=== PATIENT | female | born 1965 | race African-American/Black ===

== ENCOUNTER 2020-10-07 00:23 | Emergency (ER) | payer OTHER, SELFPAY ==
[2020-10-07 00:37] VITALS: BP 179/81; PULSE 64; RESP 18; TEMP 37.1; O2SAT 98
[2020-10-07 01:18] VITALS: BP 149/74; PULSE 64; RESP 16; O2SAT 97
--- NOTE | 2020-10-07 04:02 | ED.SKABFB ---
HPI - Skin/Abscess/Foreign Bdy General Chief complaint: Skin/Abscess/Foreign Body Stated complaint: Rash on ABD Time Seen by Provider: 10/07/20 00:38 Source: patient Mode of arrival: Ambulatory Limitations: no limitations History of Present Illness HPI narrative: 55-year-old female daily smoker without significant medical problems presents with her brother and a chief complaint of a intensely itchy and sometimes painful rash across her abdomen which has been gradually worsening over the past few days. She states that started with a small patch under her left breast and has since spread. She has not taken any medications for and denies any history of the same. She has had no fever or chills and denies nausea or vomiting. She is visiting from [place]. She thinks it is getting worse in the hot weather when she is sweating Related Data Previous Rx's Medication Instructions Recorded ketoconazole 1 applic TOPICAL BID #30 g 10/07/20 Allergies Allergy/AdvReac Type Severity Reaction Status Date / Time No Known Drug Allergies Allergy Verified 10/07/20 00:36 Review of Systems Constitutional Constitutional: Denies chills, Denies fatigue, Denies fever(s), Denies frequent falls, Denies lethargy and Denies weakness Eyes Eyes: Denies change in vision, Denies eye discharge, Denies irritation and Denies loss of vision ENT Ears, Nose, Mouth, and Throat: Denies change in voice, Denies dizziness, Denies neck pain, Denies sore throat and Denies throat swelling Cardiovascular Cardiovascular: Denies chest pain, Denies irregular heart rhythm, Denies lightheadedness, Denies palpitations, Denies dyspnea, Denies dyspnea on exertion and Denies orthopnea Respiratory Respiratory: Denies cough, Denies dyspnea, Denies dyspnea on exertion and Denies wheezing Gastrointestinal Gastrointestinal: Denies abdominal pain, Denies change in bowel habits, Denies diarrhea, Denies nausea and Denies vomiting Musculoskeletal Musculoskeletal: Denies neck pain and Denies numbness Integumentary/Breasts Skin/Breast: Denies pruritus, Reports erythema, Denies rash, Reports skin pain, Reports skin swelling and Denies wounds Neurologic Neurologic: Denies behavioral changes, Denies confusion, Denies dizziness, Denies frequent falls, Denies loss of vision, Denies numbness and Denies weakness Psychiatric Psychiatric: Denies anxiety, Denies behavioral changes, Denies confusion, Denies depression, Denies homicidal ideation and Denies suicidal ideation Endocrine Endocrine: Denies fatigue, Denies flushing and Denies palpitations Hematologic/Lymphatic Hematologic/Lymphatic: Denies easy bruising Allergic/Immunologic Allergic/Immunologic: Denies urticaria, Denies throat swelling and Denies wheezing Patient History Social History Smoking Status: Current every day smoker Smoking Status: Current every day smoker tobacco type: cigarettes alcohol intake frequency: holidays/special occasions only Substance Use Type: does not use Exam Narrative Exam Narrative: GEN: AOx3 and in mild distress EYES: Pupils are equal, round, and reactive to light and accommodation. Extraoccular muscles are intact bilaterally. There is no subconjunctival hemorrhage or exudate. CHEST: Lungs are clear to auscultation bilaterally and free of wheezes, rales, or rhonchi. Heart rate is regular rhythm, there are no murmurs, clicks, rubs, or gallops. There is no chest wall tenderness. ABD: Abdomen is soft and nontender. There is no guarding or rebound. Bowel sounds are normal in all 4 quadrants. There is no mass or organomegaly. EXT: Full painless ROM of all extremities with no loss of sensation or strength. SKIN: The skin under each breast and where the breast rests on her abdomen is erythematous, beefy, pruritic Initial Vital Signs Initial Vital Signs: Vital Signs Temperature 98.7 F 10/07/20 00:37 Pulse Rate 64 10/07/20 00:37 Respiratory Rate 18 10/07/20 00:37 Blood Pressure 179/81 H 10/07/20 00:37 Pulse Oximetry 98 10/07/20 00:37 Course Orders Ordered: Discontinued Medications Ketoconazole (Ketoconazole 2% Cream 60 Gm) 1 applic TOP NOW ONE Stop: 10/07/20 00:47 Last Admin: 10/07/20 03:13 Dose: Not Given Documented by: [email or web address] Vital Signs Vital signs: Vital Signs - 8 hr 10/07/20 00:37 10/07/20 01:18 Temperature 98.7 F Pulse Rate 64 64 Respiratory Rate 18 16 Blood Pressure 179/81 H 149/74 H Pulse Oximetry 98 97 Discharge Plan Departure Patient Disposition: Home Clinical Impression: Cutaneous fungal infection Instructions: Yeast Infection-Skin Activity Restrictions/Additional Instructions: *You have been diagnosed with [[place] skin infection ] *What to do: *Please continue to take your regular medications as directed. [ ] New medication prescriptions sent to your pharmacy: [ ] [ ] New medication written as a paper prescription [ ] No new medications given *Please follow up with your primary care provider in 2-3 days, call for an appointment. Let them know you were seen in the Emergency Department and that we ask that you be seen in follow up. We will electronically transmit a record of today's note if your PCP is in our system *If you do not have a primary care provider please contact the [facility] Resource line at [phone]. They will ask some questions about your medical history and help get you set up with a doctor in the community. *Return to Emergency Department if you should have any new, worsening or concerning symptoms, such as [fever greater than 101 F, shaking chills, worsening pain, persistent vomiting or other bothersome symptoms] Prescriptions: New ketoconazole 2 % cream 1 applic topical BID Qty: 30 RF: 0
== END 2020-10-07 01:20 | disposition home or self-care (01) ==
PROVIDERS: Emergency Provider Emergency Medicine
DX: B37.2 Candidiasis of skin and nail (principal)
CPT/HCPCS: 99281; 99282

== ENCOUNTER 2023-01-14 15:48 | Emergency (ER) | payer OTHER, SELFPAY ==
[2023-01-14 16:03] VITALS: BP 202/107; PULSE 81; RESP 18; TEMP 36.9; O2SAT 99; BMI 30.4
[2023-01-14] MEDS: KETOROLAC 30 MG/ML VIAL IM (16:46)
[2023-01-14 16:47] VITALS: BP 220/98; PULSE 65; RESP 16; O2SAT 99
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
== END 2023-01-14 16:56 | disposition home or self-care (01) ==
PROVIDERS: Emergency Provider Physician Assistant
DX: M54.42 Lumbago with sciatica, left side (principal)
CPT/HCPCS: 96372; 99283; J1885

== ENCOUNTER 2024-03-04 17:46 | Emergency (ER) | payer MEDICAID, OTHER, SELFPAY ==
[2024-03-04 17:53] VITALS: BP 172/103; PULSE 116; RESP 94; TEMP 36.6; O2SAT 94; BMI 30.2
[2024-03-04 17:59] VITALS: BP 187/92
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
--- NOTE | 2024-03-04 18:07 | PC.NURSE ---
Patient open to speaking to medical social worker. Patient notified that CREDENTIALING COORDINATOR is gone for the day. Consult placed and face sheet left in CREDENTIALING COORDINATOR box. Patient agreeable to receiving a phone call from CREDENTIALING COORDINATOR tomorrow.
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
[2024-03-04] MEDS: ACETAMINOPHEN 325 MG TABLET 975 MG PO (18:23)
[2024-03-04] MEDS: ONDANSETRON 4 MG ODT SL (18:24)
[2024-03-04 19:21] VITALS: BP 147/74; PULSE 89; RESP 16; O2SAT 95
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
== END 2024-03-04 19:42 | disposition home or self-care (01) ==
PROVIDERS: Emergency Provider Physician Assistant
DX: S06.0X0A Concussion without loss of consciousness, initial encounter (principal); F41.9 Anxiety disorder, unspecified; Y04.2XXA Assault by strike against or bumped into by another person, initial encounter
CPT/HCPCS: 70450; 99283; 99284

== ENCOUNTER 2024-10-06 19:00 | Emergency (ER) | payer OTHER, MEDICAID, SELFPAY ==
[2024-10-06] VITALS (10 sets, daily range): BP systolic 132–206; BP diastolic 67–97; PULSE 80–97; RESP 24; TEMP 37.2; O2SAT 93–97; BMI 30.4
--- NOTE | 2024-10-06 19:20 | ED_ITS ---
HPI - Skin/Abscess/Foreign Bdy General Chief complaint: Skin/Abscess/Foreign Body Stated complaint: stuck in throat food Time Seen by Provider: 10/06/24 19:19 Source: patient Mode of arrival: Ambulatory Limitations: no limitations History of Present Illness HPI narrative: 59-year-old female was eating a piece of steak, had 1st piece of steak that she swallowed that felt like it was getting stuck, she had nausea and repeated episodes of nonbloody emesis, unable to control her secretions, tried to make herself vomit but had no results, on arrival here still had esophageal chest foreign body sensation, with frequent retching nonbloody emesis. She has had occasional problems swallowing things, no prior upper endoscopy evaluations. No esophageal surgeries or known esophageal pathology. Related Data Previous Rx's ?Medication ?Instructions ?Recorded ketoconazole 2 % topical cream 1 applic topical BID #3 0 grams 10/07/20 cyclobenzaprine 5 mg tablet 5 mg PO TID PRN muscle spa sm #20 01/14/23 tabs prednisone 50 mg tablet 50 mg PO DAILY back pain #5 tabs 01/14/23 hydroxyzine HCl 25 mg tablet 25 mg PO BEDTIME PRN anxi ety #5 03/04/24 tabs ondansetron 4 mg disintegrating 4 mg PO Q8H PRN nausea and 03/04/24 tablet vomiting #12 tabs Allergies Allergy/AdvReac Type Severity Reaction Status Date / Time hydrocodone AdvReac Hallucinati Verified 01/14/23 16:03 ng Patient History Social History Smoking Status: Current every day smoker Smoking Status: Current every day smoker tobacco type: cigarettes alcohol intake frequency: holidays/special occasions only Exam Narrative Exam Narrative: GENERAL: Well-developed patient, in moderate distress with frequent retching. HEAD: Atraumatic. Normocephalic. EYES: Pupils equal round and reactive. Extraocular motions intact. No scleral icterus. No injection or drainage. ENT: Nose without bleeding, purulent drainage. Throat without erythema, tonsillar hypertrophy or exudate. Airway patent. NECK: Trachea midline. Non tender CARDIOVASCULAR: Regular rate and rhythm without murmurs, gallops, or rubs. RESPIRATORY: Clear to auscultation. Breath sounds equal bilaterally. No wheezes, rales, or rhonchi. GASTROINTESTINAL: Abdomen soft, non-tender, nondistended. EXTREMITIES: No edema or joint tenderness. BACK: Nontender without deformity or crepitance. No flank tenderness. NEURO: AOx3. Motor functions grossly nonfocal. SKIN: No rash or erythema of visible areas Initial Vital Signs Initial Vital Signs: Vital Signs Temperature 98.9 F 10/06/24 19:03 Pulse Rate 97 H 10/06/24 19:03 Respiratory Rate 24 10/06/24 19:03 Blood Pressure 206/97 H 10/06/24 19:03 Pulse Oximetry 97 10/06/24 19:03 Oxygen Delivery Method Room Air 10/06/24 19:03 Course Orders Ordered: Discontinued Medications Al Hydrox/Mg Hydrox/Simethicone (Mag Hydrox/Alum/Simeth 30 Ml Udc) 30 ml PO NOW ONE Stop: 10/06/24 20:44 Last Admin: 10/06/24 20:57 Dose: 30 ml Documented By: KATHY Glucagon (Glucagon,Human Recombinant 1 Mg/Ml Vial) 1 mg IV NOW ONE Stop: 10/06/24 19:20 Last Admin: 10/06/24 20:14 Dose: 1 mg Documented By: LUCI Nitroglycerin (Nitroglycerin 0.4 Mg Sl Tab) 0.4 mg SL NOW ONE Stop: 10/06/24 19:20 Last Admin: 10/06/24 20:13 Dose: 0.4 mg Documented By: LUCI Pantoprazole Sodium (Pantoprazole 40 Mg Vial) 40 mg IV NOW ONE Stop: 10/06/24 20:44 Last Admin: 10/06/24 20:58 Dose: 40 mg Documented By: KATHY Vital Signs Vital signs: Vital Signs - 8 hr 10/06/24 22:10 10/06/24 22:11 10/06/24 22:11 Pulse Rate 89 83 Blood Pressure 136/88 Pulse Oximetry 96 95 Oxygen Delivery Method 10/06/24 22:38 10/06/24 22:38 Pulse Rate Blood Pressure 147/67 H Pulse Oximetry 93 Oxygen Delivery Method Room Air MDM - Skin/Abscess/Foreign Bdy MDM Narrative Medical decision making narrative: 59-year-old female with foreign body sensation after swallowing a piece of steak, unable to induce emesis and removed the foreign body, retching and nonbloody emesis here in the emergency department, went to the bathroom and had emesis of small particular steak matter but still persisting symptoms, unable to swallow her secretions. IV glucagon, sublingual nitroglycerin, sips of carbonated beverage. Symptoms seemed to be improving, possible passage of food bolus foreign body. Patient looks more comfortable, we will give IV Protonix, sips of Maalox. Further improved. Discharged home. Consider taking [id number] omeprazole for the next couple of weeks. Consider outpatient upper endoscopy, given histor y of similar symptoms less severe of retained esophageal foreign bodies, to evaluate for stricture or esophageal lesions. Advised to follow up with her primary care physician for referral to Gastroenterology as an outpatient basis. Discharge Plan Departure Patient Disposition: Home Clinical Impression: Impacted esophageal foreign body Instructions: DI for Foreign Body, Swallowed-Adult Activity Restrictions/Additional Instructions: Foreign body sensation with multiple episodes of vomiting after swallowing a piece of steak, likely impacted, initially not responsive to self-induced attempts at emesis, then had small fragments steak like material at emesis in the emergency department, IV glucagon and sublingual nitroglycerin given, seemed to be helpful, had passage of foreign body like sensation. Able to take sips of Maalox. IV Protonix antacid also given. No prior upper endoscopy. Likely have passed esophageal foreign body piece of steak. Consider upper endoscopy evaluation in follow up if you have had prior episodes of food getting stuck, as there could be esophageal mass or stricture that needs further evaluation. Lyles to your food including steak in meet another hard substances, to reduce the risk of foreign body food impaction in your esophagus in the future. Consider trial of omeprazole or other [id number]-ejysffe antacid for the next couple of weeks to encourage healing from tonight's episode. Return earlier to this/nearest emergency department for any change worsening symptoms or any concerns prior. Prescriptions: No Action prednisone 50 mg tablet 50 mg PO DAILY Qty: 5 0RF cyclobenzaprine 5 mg tablet 5 mg PO TID PRN (Reason: muscle spasm) Qty: 20 0RF ketoconazole 2 % cream 1 applic topical BID Qty: 30 0RF ondansetron 4 mg tablet,disintegrating 4 mg PO Q8H PRN (Reason: nausea and vomiting) Qty: 12 0RF hydroxyzine HCl 25 mg tablet 25 mg PO BEDTIME PRN (Reason: anxiety) Qty: 5 0RF Referrals: Miscellaneous,Doctor, MD [Primary Care Provider, Medical] Stand Alone Forms: Patient Portal/API
[2024-10-06] MEDS: NITROGLYCERIN 0.4 MG SL TAB SL (20:13)
[2024-10-06] MEDS: GLUCAGON,HUMAN RECOMBINANT 1 MG/ML VIAL IV (20:14)
[2024-10-06] MEDS: MAG HYDROX/ALUM/SIMETH 30 ML UDC PO (20:57)
[2024-10-06] MEDS: PANTOPRAZOLE 40 MG VIAL IV (20:58)
== END 2024-10-06 22:54 | disposition home or self-care (01) ==
PROVIDERS: Emergency Provider Emergency Medicine
DX: T17.228A Food in pharynx causing other injury, initial encounter (principal); W44.F3XA Food entering into or through a natural orifice, initial encounter
CPT/HCPCS: 36415; 96374; 96375; 99284; J1610; J2470